=== PATIENT | male | born 1960 | race Caucasian/White ===

== ENCOUNTER 2016-07-22 14:51 | Day surgery (SDC) | payer BC ==
[~2016-07-22 14:51] MED LIST: ALEVE220 M4 PO; INDOMETHACIN50 M1 PO; KEFLEX500 M4 PO; LOPRESSOR50 M1 PO; ULTRAM50 M1 PO; ZESTORETIC 20-1 EAC3 PO
== END 2016-07-22 19:10 ==
LOC: SHSB 14:51 → ORE 16:45 → SHSB 18:00
PROC: 0Y6R0Z0 Detachment at Right 2nd Toe, Complete, Open Approach (ICD-10-PCS; principal; 2016-07-22)
DX: M86.8X7 Other osteomyelitis, ankle and foot (principal); I10 Essential (primary) hypertension; F41.9 Anxiety disorder, unspecified; F32.9 Major depressive disorder, single episode, unspecified; K21.9 Gastro-esophageal reflux disease without esophagitis; N40.0 Benign prostatic hyperplasia without lower urinary tract symptoms; F17.210 Nicotine dependence, cigarettes, uncomplicated; Z98.890 Other specified postprocedural states
CPT/HCPCS: J0690; J1030